=== PATIENT | male | born 2005 | race Hispanic/Latino ===

== ENCOUNTER 2024-06-15 21:39 | Emergency (ER) | payer BC ==
[2024-06-15] MEDS ORDERED: Ibuprofen 200 MG TAB ONE (22:24)
== END 2024-06-15 22:48 | disposition home or self-care (01) ==
LOC: NAV ERS 21:39
DX: R19.7 Diarrhea, unspecified (principal); R10.84 Generalized abdominal pain
CPT/HCPCS: 99283